=== PATIENT | male | born 1995 | race Caucasian/White ===

== ENCOUNTER 2024-03-07 12:33 | Emergency (ER) | payer BC ==
[~2024-03-07 12:33] MED LIST: Iopamidol-370 76% 500 ML MDV (1 ML CHARGE) ONE
[2024-03-07 13:15] LABS: Bilirubin Small (Negative); Blood, Urine Trace (Negative); Glucose, Urine (Dipstick) Negative (Negative); Ketone, Urine Negative (Negative); Leukocyte Negative (Negative); Nitrite Negative (Negative); Protein, Urine (Dipstick) Trace mg/dL (Neg-Trace); Urobilinogen 0.2 mg/dL (Less than 2)
[2024-03-07 13:16] LABS: Clarity Clear (Clear); Specific Gravity, Urine 1.022 (1.002-1.036)
[2024-03-07 13:22] LABS: CAUTI Indications for Culture Dysuria,urgency,freq; RBC/HPF 0-3 HPF (0-3); Squamous Epithelial None Seen HPF (0-3); WBC/HPF None Seen HPF (0-3)
[2024-03-07 13:23] LABS: Bacteria/HPF Rare-Few HPF (None Seen)
[2024-03-07 13:24] LABS: #Basophils 0.09 10x3/uL (0.0-0.2); %Eosinophils 2.2 % (0.0-10.0); %Lymphocytes 10.3 % (21.0-51.0); %Monocytes 7.2 % (0.0-10.0); %Neutrophils 79.1 % (42.0-75.0); Hematocrit 43.7 % (42.0-52.0); Hemoglobin 15.4 g/dL (14.0-18.0); Mean Corpuscular HGB CONC 35.2 g/dL (32.0-36.0); Mean Corpuscular Hemoglobin 31.4 pg (27.0-31.0); Mean Corpuscular Volume 89.2 fL (78.0-98.0); Mean Platelet Volume 11.2 fL (7.4-10.4); Platelet Count 148 10x3/uL (130-400); RBC Distribution Width 12.9 % (11.5-14.5); Urine Culture Reflex No No
[2024-03-07] MEDS ORDERED: Ondansetron PF 4 MG/2 ML Vial ONE (13:30)
[2024-03-07] MEDS ORDERED: Morphine 4 MG/ML VIAL ONE (13:30)
[2024-03-07] MEDS ORDERED: Ketorolac Tromethamine 30 MG (1 mL) VIAL ONE (13:30)
[2024-03-07 13:36] LABS: ALT (SGPT) 17 U/L (8-55); AST (SGOT) 19 U/L (5-34); Albumin 4.5 g/dL (3.5-5.0); Alkaline Phosphatase 95 U/L (40-110); Anion Gap 14 mmol/L (10-20); BUN (Urea Nitrogen) 17 mg/dL (8.9-20.6); Bilirubin, Total 0.5 mg/dL (0.2-1.2); Calc. Creatinine Clearance 0 mL/min (70-130); Calcium 9.3 mg/dL (7.8-10.44); Carbon Dioxide 20 mmol/L (22-29); Chloride 104 mmol/L (98-107); Estimated GFR 99; Globulin 3.5 g/dL (2.4-3.5); Glucose 121 mg/dL (70-105); Lipase 10 U/L (8-78); Potassium 3.7 mmol/L (3.5-5.1); Sodium 134 mmol/L (136-145)
== END 2024-03-07 14:03 | disposition home or self-care (01) ==
LOC: ERS 12:33
DX: K50.90 Crohn's disease, unspecified, without complications (principal); K52.9 Noninfective gastroenteritis and colitis, unspecified; F17.210 Nicotine dependence, cigarettes, uncomplicated
CPT/HCPCS: 74177; 80053; 81001; 83605; 83690; 85025; 96374; 96375; J1885; J2272; J2405; Q9967

== ENCOUNTER 2024-03-10 18:09 | Emergency (ER) | payer BC ==
[2024-03-10] MEDS ORDERED: diphenhydrAMINE 25 MG CAP ONE (19:02)
[2024-03-10] MEDS ORDERED: predniSONE 20 MG TAB ONE (19:02)
[2024-03-10] MEDS ORDERED: Famotidine 20 MG TAB ONE (19:02)
[2024-03-10] MEDS ORDERED: Ipratropium/Albuterol 3 ML NEB ONE (20:25)
== END 2024-03-10 20:53 | disposition home or self-care (01) ==
LOC: ERS 18:09
DX: L50.9 Urticaria, unspecified (principal); F17.210 Nicotine dependence, cigarettes, uncomplicated
CPT/HCPCS: J7512; J7620

== ENCOUNTER 2025-01-09 23:13 | Emergency (ER) | payer OTHER ==
[2025-01-09] MEDS ORDERED: HYDROcodone/Acetaminophen 5/325 mg Tablet ONE (23:55)
== END 2025-01-10 00:10 | disposition home or self-care (01) ==
LOC: ERS 23:13
DX: M54.50 Low back pain, unspecified (principal); F17.210 Nicotine dependence, cigarettes, uncomplicated
CPT/HCPCS: 99283